=== PATIENT | male | born 1985 | race Caucasian/White ===

== ENCOUNTER 2023-06-24 21:53 | Emergency (ER) | payer MEDICAID ==
--- NOTE | 2023-06-24 22:02 | ED Physician Documentation ---
History of Present Illness - Stated complaint Stated Complaint: - Chief complaint Chief Complaint: General - History obtained from History obtained from: Patient - Additonal information Additional information: 37yM p/w R testicle swelling and pain since yesterday. denies fever, penile discharge or trauma to region. Review of Systems Constitutional: denies: Fever GI: denies: Abdominal Pain, Nausea, Vomiting : reports: Testicular pain, Testicular mass. denies: Dysuria, Frequency, Hematuria PD PAST MEDICAL HISTORY - Present Medications Home Medications: Ambulatory Orders Medication Instructions Recorded Confirmed Cyclobenzaprine [Flexeril] 10 mg PO TID PRN 06/24/23 06/24/23 Gabapentin [Neurontin] 300 mg PO TID 06/24/23 06/24/23 Ibuprofen [Motrin] 600 mg PO Q6H PRN 06/24/23 06/24/23 Senna [Senokot] 8.6 mg PO DAILY 06/24/23 06/24/23 cephALEXin [Keflex] 500 mg PO Q6H 06/24/23 06/24/23 levoFLOXacin [Levofloxacin] 500 mg PO QDAC #10 tablet 06/24/23 oxyCODONE [Roxicodone] 5 mg PO 06/24/23 06/24/23 polyethylene glycoL 3350 [Miralax] 17 gm PO DAILY 06/24/23 06/24/23 - Allergies Allergies/Adverse Reactions: Allergies Allergy/AdvReac Type Severity Reaction Status Date / Time acetaminophen [From Tylenol] Allergy Nausea Verified 06/24/23 22:00 PD ED PE NORMAL - Vitals Vital signs reviewed: Yes - General General: Alert and oriented X 3, No acute distress, Well developed/nourished - HEENT HEENT: Atraumatic, PERRL, EOMI - Male Male : Filter Cloth Maker present (LEVI Mcknight), Other (BL cremaster intact. R testicle ttp. visible swelling . nonerythematous) - Derm Derm: Normal color, Warm and dry Results - Vitals Vitals: Vital Signs - 24 hr 06/24/23 21:57 Temperature 37.9 C Heart Rate 104 H Respiratory 16 Rate Blood Pressure 127/77 O2 Saturation 97 Oxygen O2 Source Room air PD Medical Decision Making - ED course ED course: 37yM p/w R varicocele, hydrocele, epididymitis on ultrasound. sti testing and u/a performed. antibiotics sent to pharmacy. return precautions given. Departure - Departure Disposition: 01 Home, Self Care Clinical Impression: Hydrocele, Varicocele, Epididymitis Condition: Stable Instructions: Epididymitis Dc, ED Varicocele, ED Hydrocele Type Not Specified Follow-Up: Lian Villalba MD [Physician No Access] - Prescriptions: levoFLOXacin [Levofloxacin] 500 mg PO QDAC #10 tablet Comments: You were seen in the ED for R testicle pain and found to have hydrocele, varicocele, and epididymitis. Antibiotics were sent electronically to [facility] in [place]. Please follow-up with urology and return to the emergency department if you have any new or worsening symptoms or other concerns. Forms: PCP List
--- NOTE | 2023-06-24 23:44 | Ultrasound Report ---
PROCEDURE: Testicle w/Doppler INDICATIONS: R testicle pain TECHNIQUE: Real-time scanning was performed of the scrotum and testicles, with image documentation. Color and p ulse Doppler interrogation was performed of both testicles. COMPARISON: None. FINDINGS: Right: Testicle is normal in size at 4.5 x 3.1 x 3.4 cm, and homogenous in echotexture. Epididymis is normal in overall size and morphology. Moderate hydrocele, containing mildly thickened internal s eptations. Varicocele present. Overlying scrotal skin is normal in thickness. Left: Testicle is normal in size at 4.1 x 2.1 x 3.1 cm, and homogeneous in echotexture. Epididymis is normal in overall size and morphology. No hydrocele. No varicoceles. Overlying scrotal skin is n ormal in thickness. Doppler: Color and pulse Doppler demonstrate increased vascularity of the right testicle and epididy mis. Patent vasculature and normal waveforms. IMPRESSION: Suspected right orchitis and epididymitis, with associated complex hydrocele containing thickened int ernal septations. Right-sided varicocele present, which is atypical. Nonemergent CT of the abdomen and pelvis with cont rast is recommended to exclude obstructing mass. Reviewed by: Dutch Swann on 06/24/2023 11:42 PM PDT Approved by: Dutch Swann on 06/24/2023 11:42 PM PDT Station ID: [id number]
[2023-06-24 23:51] LABS: BILIRUBIN,URINE NEGATIVE (NEGATIVE); GLUCOSE, URINE (UA) NEGATIVE (NEGATIVE); KETONES,URINE (UA) NEGATIVE (NEGATIVE); LEUKOCYTE ESTERASE, URINE NEGATIVE (NEGATIVE); NITRITE,URINE NEGATIVE (NEGATIVE); OCCULT BLOOD,URINE NEGATIVE (NEGATIVE); PH,URINE 5.5 PH (5.0-7.5); PROTEIN,URINE NEGATIVE (NEGATIVE); UROBILINOGEN,URINE 0.2 (NORMAL) E.U./dL (NORMAL)
[2023-06-24 23:53] LABS: CLARITY,URINE CLEAR (CLEAR)
[2023-06-24 23:56] VITALS: BP 130/79; O2SAT 100
[2023-06-25 00:04] LABS: BACTERIA,URINE None Seen /HPF (None Seen); RBC,URINE 0-5 /HPF (0-5); SQUAMOUS EPITHELIAL CELL,UR NONE SEEN (<= Few); WBC,URINE 0-3 /HPF (0-3)
[2023-06-25 02:20] LABS: CHLAMYDIA TRACHOMATIS DNA NEGATIVE (NEGATIVE); NEISSERIA GONORRHOEAE DNA NEGATIVE (NEGATIVE); TRICHOMONAS VAGINALIS DNA NEGATIVE (NEGATIVE)
== END 2023-06-24 23:49 | disposition home or self-care (01) ==
LOC: ED 21:53
DX: N43.3 Hydrocele, unspecified (principal); I86.1 Scrotal varices; N45.1 Epididymitis
CPT/HCPCS: 81001; 87086; 87491; 87591; 87661; 93975; 99283; 99284